=== PATIENT | male | born 1970 ===

== ENCOUNTER 2019-08-18 23:23 | Emergency (ER) | payer SELFPAY ==
[2019-08-19] MEDS ORDERED: Famotidine 20 MG/2 ML SDV IVPUSH ONE (00:12)
[2019-08-19] MEDS ORDERED: Pantoprazole 40 MG Vial IVPUSH ONE (00:13)
[2019-08-19] MEDS ORDERED: GI Cocktail Oral Solution 30 ML PO ONE ×2 (00:15→01:26)
[2019-08-19 00:22] LABS: ANION GAP 15.4 mEq/L (7-13); CHLORIDE,CL 100 mmol/L (98-107); SODIUM,NA 141 mmol/L (136-145)
[2019-08-19] MEDS ORDERED: Iopamidol 612 MG/ML 100 ML Bottle IVPUSH ONE (00:57)
--- NOTE | 2019-08-19 07:04 | EDM.PDOC ---
ED HPI GENERAL MEDICAL PROBLEM - General Chief Complaint: Abdominal Pain Stated Complaint: RIGHTSIDE STOMACH PAIN Time Seen by Provider: 08/18/19 23:40 Source of Information: Reports: Patient, RN History Limitations: Reports: No Limitations - History of Present Illness INITIAL COMMENTS - FREE TEXT/NARRATIVE: c/o abdominal pain x 2 hours after eating a pickle, has not tried anything for pain. One time similar episode one year ago. Has take omeprazole in past . No fever chills No vomiting. Right Upper Abdomen Pain Score (Numeric/FACES): 9 - Related Data Allergies Allergy/AdvReac Type Severity Reaction Status Date / Time No Known Allergies Allergy Verified 08/18/19 23:33 Home Meds: Home Meds buPROPion [Wellbutrin] 300 mg PO DAILY 08/19/19 [History] Past Medical History - Past Health History Medical/Surgical History: Denies Medical/Surgical History Social & Family History - Tobacco Use Smoking Status *Q: Current Every Day Smoker Years of Tobacco use: 30 Packs/Tins Daily: 1 - Recreational Drug Use Recreational Drug Use: No ED ROS GENERAL - Review of Systems Review Of Systems: Comprehensive ROS is negative, except as noted in HPI. ED EXAM, GI/ABD - Physical Exam Exam: See Below General Appearance: Alert, No Apparent Distress Nose: Normal Inspection Throat/Mouth: Normal Inspection Head: Atraumatic, Normocephalic Neck: Normal Inspection Respiratory/Chest: No Respiratory Distress, Lungs Clear, Normal Breath Sounds Cardiovascular: Normal Peripheral Pulses, Regular Rate, Rhythm GI/Abdominal Exam: Soft, Tender (epigastric) Back Exam: Normal Inspection, Full Range of Motion Extremities: Normal Inspection, Normal Range of Motion Neurological: Alert, Oriented, Normal Cognition Psychiatric: Flat Affect Skin Exam: Warm, Dry, Intact, Tattoo(s) Course - Vital Signs Last Recorded V/S: Last Vital Signs Temp 96.3 F L 08/18/19 23:33 Pulse 50 L 08/18/19 23:33 Resp 20 08/18/19 23:33 BP 153/85 H 08/18/19 23:33 Pulse Ox 100 08/18/19 23:33 - Orders/Labs/Meds Orders: Active Orders 24 hr Category Date Time Status Abdomen Pelvis w Cont [CT] Urgent Exams 08/19/19 00:56 Ordered Labs: Laboratory Tests 05/20/20 05/20/20 Range/Units 23:55 23:55 WBC 10.3 H (5.0-10.0) 10^3/uL RBC 4.73 (4.6-6.2) 10^6/uL Hgb 15.0 (14.0-18.0) g/dL Hct 43.4 (40.0-54.0) % MCV 91.8 (80-100) fL MCH 31.7 (27.0-34.0) pg MCHC 34.6 (33.0-35.0) g/dL Plt Count 282 (150-450) 10^3/uL Neut % (Auto) 87.4 H (42.2-75.2) % Lymph % (Auto) 7.2 L (20.5-50.1) % [place] % (Auto) 5.1 (2-8) % Eos % (Auto) 0.1 L (1.0-3.0) % Baso % (Auto) 0.2 (0.0-1.0) % Sodium 141 (136-145) mmol/L Potassium 3.4 L (3.5-5.1) mmol/L Chloride 100 (98-107) mmol/L Carbon Dioxide 29 (21-32) mmol/L Anion Gap 15.4 H (7-13) mEq/L BUN 18 (7-18) mg/dL Creatinine 0.99 (0.70-1.30) mg/dL Est Cr Clr Drug Dosing 91.25 mL/min Estimated GFR (MDRD) > 60 BUN/Creatinine Ratio 18.2 (No establ ref range) Glucose 106 H (74-99) mg/dL Calcium 9.3 (8.5-10.1) mg/dL Total Bilirubin 1.5 H (0.2-1.0) mg/dL AST 28 (15-37) U/L ALT 33 (16-63) U/L Alkaline Phosphatase 64 (46-116) U/L Total Protein 8.2 (6.4-8.2) g/dL Albumin 4.4 (3.4-5.0) g/dL Globulin 3.8 Albumin/Globulin Ratio 1.2 Amylase 20 L (25-115) U/L Lipase 101 (73-393) U/L Ethyl Alcohol < 3 (0) mg/dL Meds: Medications Discontinued Medications Generic Name Dose Route Start Last Admin Trade Name Julian PRN Reason Stop Dose Admin Al Hydroxide/Mg Hydroxide 30 ml 08/19/19 00:15 08/19/19 00:24 Gi Cocktail PO 08/19/19 00:16 30 ml ONETIME ONE Administration Al Hydroxide/Mg Hydroxide 30 ml 08/19/19 01:26 Gi Cocktail PO 08/19/19 01:27 ONETIME ONE Famotidine 20 mg 08/19/19 00:12 08/19/19 00:24 Pepcid IVPUSH 08/19/19 00:13 20 mg ONETIME ONE Administration Iopamidol 100 ml 08/19/19 00:57 Isovue-300 (61%) IVPUSH 08/19/19 00:58 ONETIME ONE Pantoprazole Sodium 40 mg 08/19/19 00:13 08/19/19 00:24 Protonix Iv IVPUSH 08/19/19 00:14 40 mg ONETIME ONE Administration - Re-Assessments/Exams Free Text/Narrative Re-Assessment/Exam: 08/19/19 07:[address], Refused to provide urine for drug screen Appeared mild distress on presentation with rocking and holding epigastric, After nursing assessment patient had to be woken for provider exam. Left AMA. Departure - Departure Time of Disposition: 01:40 Disposition: Against Medical Advice 07 Condition: Good Clinical Impression: Gastritis Qualifiers: Gastritis type: unspecified gastritis Chronicity: acute Gastritis bleeding: without bleeding Qualified Code(s): K29.00 - Acute gastritis without bleeding - Discharge Information *PRESCRIPTION DRUG MONITORING PROGRAM REVIEWED*: Yes *COPY OF PRESCRIPTION DRUG MONITORING REPORT IN PATIENT NICOLE: No Forms: ED Department Discharge Sepsis Event Note - Evaluation Sepsis Screening Result: No Definite Risk - Focused Exam Vital Signs: Vital Signs Temp Pulse Resp BP Pulse Ox 08/18/19 23:33 96.3 F L 50 L 20 153/85 H 100 Date Exam was Performed: 08/19/19 Time Exam was Performed: 06:59 - My Orders Last 24 Hours: My Active Orders 08/19/19 00:56 Abdomen Pelvis w Cont [CT] Urgent - Assessment/Plan Last 24 Hours: My Active Orders 08/19/19 00:56 Abdomen Pelvis w Cont [CT] Urgent
== END 2019-08-19 01:48 | disposition left against medical advice (07) ==
LOC: DL.ED 23:23
DX: K29.00 Acute gastritis without bleeding (principal); F17.210 Nicotine dependence, cigarettes, uncomplicated
CPT/HCPCS: 36415; 80053; 80307; 82150; 83690; 85025; 96374; 96375; 99284-25; A9270-GY; C9113; J3490